=== PATIENT | female | born 1955 | race Caucasian/White ===

== ENCOUNTER 2017-12-05 12:44 | Outpatient (CLI) | payer MEDICARE, SELFPAY ==
[2017-12-05 16:03] LABS: Abs Immature Grans 0.01 k/cumm (0.0-0.09); Absolute Basophil Count 0.03 k/cumm (0.0-0.2); Absolute Eosinophil Count 0.12 k/cumm (0.0-0.7); Absolute Lymphocyte Count 1.91 k/cumm (1.2-3.4); Absolute Monocyte Count 0.66 k/cumm (0.11-0.7); Absolute Neutrophil Count 6.39 k/cumm (1.2-6.7); Basophils % 0.3; Eosinophils % 1.3; HGB 12.1 g/dL (12.0-15.5); Immature Grans % 0.1; Lymphocytes % 20.9; Mean Corp. HGB Concentration 32.7 g/dL (32.0-36.0); Mean Corpuscular Hemoglobin 31.5 pg (27.0-33.0); Mean Corpuscular Volume 96.4 fL (80-95); Mean Platelet Volume 9.3 fL (8.0-11.0); Monocytes % 7.2; Neutrophils % 70.2; Platelet Count 282 x1000/uL (130-400); RBC 3.84 m/cumm (4.00-5.20); White Blood Cell Count 9.12 k/cumm (4.4-10.8)
== END 2017-12-05 13:04 ==
PROVIDERS: PCP Nurse Practitioner Family; Visit Provider Nurse Practitioner Family
DX: F32.1 Major depressive disorder, single episode, moderate (principal); R53.83 Other fatigue; D64.9 Anemia, unspecified
CPT/HCPCS: 36415; 85025

== ENCOUNTER 2018-01-31 01:07 | Outpatient (CLI) | payer MEDICARE, SELFPAY ==
[2018-01-31 12:41] LABS: Cholesterol 190 mg/dL (50-200); HDL Cholesterol 98 mg/dL (40-60); LDL CHOLESTEROL 80 mg/dL (<100); TSH 3.01 uIU/mL (0.358-3.74); Triglyceride 79 mg/dL (30-150)
== END 2018-01-31 01:27 ==
PROVIDERS: PCP Nurse Practitioner Family; Visit Provider Nurse Practitioner Family
DX: E04.1 Nontoxic single thyroid nodule (principal); E03.9 Hypothyroidism, unspecified
CPT/HCPCS: 36415; 80061; 83721; 84443

== ENCOUNTER 2018-03-13 12:22 | Outpatient (REF) | payer MEDICARE, SELFPAY ==
[2018-03-13 13:04] LABS: Abs Immature Grans 0.02 k/cumm (0.0-0.09); Absolute Basophil Count 0.02 k/cumm (0.0-0.2); Absolute Eosinophil Count 0.05 k/cumm (0.0-0.7); Absolute Lymphocyte Count 1.95 k/cumm (1.2-3.4); Absolute Monocyte Count 0.62 k/cumm (0.11-0.7); Absolute Neutrophil Count 4.09 k/cumm (1.2-6.7); Basophils % 0.3; Eosinophils % 0.7; HCT 40.8 % (36.0-46.0); HGB 13.7 g/dL (12.0-15.5); Immature Grans % 0.3; Lymphocytes % 28.9; Mean Corp. HGB Concentration 33.6 g/dL (32.0-36.0); Mean Corpuscular Hemoglobin 32.2 pg (27.0-33.0); Mean Platelet Volume 9.5 fL (8.0-11.0); Monocytes % 9.2; Neutrophils % 60.6; Platelet Count 316 x1000/uL (130-400); RBC 4.25 m/cumm (4.00-5.20); RBC Distribution Width 13.1 % (11.7-14.6); White Blood Cell Count 6.75 k/cumm (4.4-10.8)
== END 2018-03-13 12:42 ==
LOC: LBN 12:22
PROVIDERS: PCP Nurse Practitioner Family; Visit Provider Nurse Practitioner Family
DX: D53.9 Nutritional anemia, unspecified (principal)
CPT/HCPCS: 85025

== ENCOUNTER 2018-09-04 13:03 | Outpatient (REF) | payer MEDICARE, SELFPAY ==
[2018-09-04 20:13] LABS: HCT 41.1 % (36.0-46.0); HGB 13.5 g/dL (12.0-15.5); Mean Corp. HGB Concentration 32.8 g/dL (32.0-36.0); Mean Corpuscular Hemoglobin 31.8 pg (27.0-33.0); Mean Corpuscular Volume 96.9 fL (80-95); Mean Platelet Volume 10.1 fL (8.0-11.0); Platelet Count 305 x1000/uL (130-400); RBC 4.24 m/cumm (4.00-5.20); RBC Distribution Width 13.3 % (11.7-14.6); White Blood Cell Count 5.71 k/cumm (4.4-10.8)
[2018-09-04 20:21] LABS: ALT 26 U/L (12-78); AST 18 U/L (15-37); Alkaline Phosphatase 67 U/L (46-116); Anion Gap 7.6 mmol/L (3-11); BUN 12 mg/dL (7-18); Bilirubin, Total 0.3 mg/dL (0.2-1.0); CO2 29.4 mmol/L (21.0-32.0); CREATININE 0.99 mg/dL (0.55-1.02); Calcium 9.3 mg/dL (8.5-10.1); Chloride 104 mmol/L (98-107); Estimated GFR 56.65 (mL/min/1.73m2); Glucose 115 mg/dL (70-100); Potassium 3.8 mmol/L (3.5-5.1); Sodium 141 mmol/L (136-145); TSH (W/Ref FT4) 0.98 uIU/mL (0.358-3.74); Total Protein 6.8 g/dL (6.4-8.2)
== END 2018-09-04 13:23 ==
LOC: NCHCN 13:03
PROVIDERS: PCP Nurse Practitioner Family; Visit Provider Nurse Practitioner Family
DX: E04.1 Nontoxic single thyroid nodule (principal); D53.9 Nutritional anemia, unspecified; F32.9 Major depressive disorder, single episode, unspecified; E03.9 Hypothyroidism, unspecified
CPT/HCPCS: 80053; 85027; 84443

== ENCOUNTER 2018-10-13 13:22 | Outpatient (REF) | payer MEDICARE, OTHER, SELFPAY ==
--- NOTE | 2018-10-13 11:50 | PAPFT_PTH ---
PATIENT: Reina Low LOC: [facility] U#:[id number] AGE/SX: 63/F ROOM: RE10/13/[address]: Shankar Torres : 1955 BED: DIS: 10/13/2018 SPEC #: [id number] RECD: 10/13/18 18:00 STATUS: KRISTAL REQ #: [id number] MATT: 10/13/18 11:[address]: Shankar Torres DEPT: [facility] Cytology RECD BY: Mei Dyson Tissues: 1 - CX/ENDOCX FOR PAP SMEARS Procedures: PAP THIN PREP/UVM Screening HPV DNA PROBE Comments: [id number]
== END 2018-10-13 13:42 ==
LOC: NCHCN 13:22
PROVIDERS: PCP Nurse Practitioner Family; Visit Provider Nurse Practitioner Family
DX: Z12.4 Encounter for screening for malignant neoplasm of cervix (principal); Z11.51 Encounter for screening for human papillomavirus (HPV)
CPT/HCPCS: 88142; 87624

== ENCOUNTER → 2018-11-17 10:57 | Outpatient (BNVA) | payer MEDICARE, OTHER, SELFPAY | PROVIDERS: PCP Nurse Practitioner Family; Referring Provider Nurse Practitioner Family; Visit Provider Physical Therapy Assistant | DX: K21.9 Gastro-esophageal reflux disease without esophagitis (principal); Z12.11 Encounter for screening for malignant neoplasm of colon | CPT/HCPCS: 99213 ==

== ENCOUNTER 2018-11-17 11:45 | Outpatient (CLI) | payer MEDICARE, OTHER, SELFPAY ==
[2018-11-21 10:24] LABS: SS-A Antibody 1.1 Units (<20); SS-B (La) Ab, IgG 3.1 Units (<20)
== END 2018-11-17 12:05 ==
PROVIDERS: PCP Nurse Practitioner Family; Visit Provider Otolaryngology Otolaryngology/Facial Plastic Surgery
DX: R49.0 Dysphonia (principal); H04.123 Dry eye syndrome of bilateral lacrimal glands; R68.2 Dry mouth, unspecified; K21.9 Gastro-esophageal reflux disease without esophagitis; Z12.11 Encounter for screening for malignant neoplasm of colon
CPT/HCPCS: 36415; 99213; 86235

== ENCOUNTER 2019-03-05 01:25 | Outpatient (CLI) | payer MEDICARE, OTHER, SELFPAY ==
--- NOTE | 2019-03-05 12:45 | DI.MAMMO_ITS ---
EXAM: MG MAMMO SCREENING CLINICAL HISTORY: SCREENING Z12.39. TECHNIQUE: Full field digital CC and MLO mammographic images were obtained with 3D tomosynthesis and utilizing computer aided detection (CAD). COMPARISON: 2009 through 2013 FINDINGS: Breast density: C Masses/Architectural Distortion: None seen. Microcalcifications: No suspicious pleomorphic-type calcifications are seen. Skin Thickening/Nipple Retraction: None. Axilla: Unremarkable. IMPRESSION: 1. BI-RADS category 1, negative. No significant interval change with no specific features of maligna ncy noted. 2. Unless there is more urgent need, screening mammography is recommended, as per [employer] guidelines. BI-RADS Cat 1 - Negative Breast Density - Category C - Heterogeneously dense A negative radiographic report should not delay biopsy if a dominant or clinically suspicious mass is present. Up to ten percent of cancers are not identified on mammography. A negative report may reinforce clinical impression. Adenosis and dense breasts may obscure an underlying neoplasm. False positive reports average 6 to 10%. Patient will receive a letter notifying them of these results.
== END 2019-03-05 01:45 ==
PROVIDERS: PCP Nurse Practitioner Family; Visit Provider Nurse Practitioner Family
DX: Z12.31 Encounter for screening mammogram for malignant neoplasm of breast (principal)
CPT/HCPCS: 77063; 77067

== ENCOUNTER 2019-11-08 11:37 | Outpatient (REF) | payer MEDICARE, OTHER, SELFPAY ==
[2019-11-08 18:20] LABS: HCT 39.5 % (36.0-46.0); HGB 12.7 g/dL (11.2-15.7); MCH 31.2 pg (27.0-33.0); MCHC 32.2 % (32.0-36.0); MCV 97.1 fL (80-95); MPV 9.3 fL (8.0-11.0); Platelet Count 276 10^3/uL (130-400); RBC 4.07 10^6/uL (3.93-5.22); RDW 12.6 % (11.7-14.6); RDW-SD 45.3 fL; WBC 7.28 10^3/uL (4.4-10.8)
[2019-11-08 18:43] LABS: Anion Gap 7.7 mmol/L (3-11); BUN 17 mg/dL (7-18); CO2 30.3 mmol/L (21.0-32.0); CREATININE 0.96 mg/dL (0.55-1.02); Calcium 8.9 mg/dL (8.5-10.1); Calculated LDL 112 mg/dL (<100); Chloride 102 mmol/L (98-107); Cholesterol 217 mg/dL (<200); Estimated GFR 58.51 (mL/min/1.73m2); Glucose 93 mg/dL (74-106); HDL Cholesterol 84 mg/dL (40-60); Potassium 3.5 mmol/L (3.5-5.1); Sodium 140 mmol/L (136-145); TSH (W/Ref FT4) 0.69 uIU/mL (0.36-3.74); Triglyceride 109 mg/dL (<150)
== END 2019-11-08 11:57 ==
LOC: NCHCN 11:37
PROVIDERS: PCP Nurse Practitioner Family; Visit Provider Nurse Practitioner Family
DX: E04.1 Nontoxic single thyroid nodule (principal); E87.6 Hypokalemia; E03.9 Hypothyroidism, unspecified
CPT/HCPCS: 80048; 80061; 85027; 84443

== ENCOUNTER 2019-12-20 20:08 | Outpatient (CLI) | payer MEDICARE, OTHER, SELFPAY ==
--- NOTE | 2019-12-20 15:04 | DI.DEXA_ITS ---
EXAM: XR DEXA BONE DENSITY W/WO ANDREEA CLINICAL HISTORY: DISORDER OF BONE DENSITY,M85.88 TECHNIQUE: HoloTipRanks Horizon C densitometer COMPARISON: DX DEXA BONE DENSITY WITH ANDREEA from 01/01/2014 CR CHEST 2 VIEWS PA,LAT from 03/24/2016 FINDINGS: Lateral view of the thoracic and lumbar spine shows thoracic kyphosis. The thoracic vertebral bodies are not ideally visualized. There are degenerative disc changes and scoliosis in the lower lumbar s pine. Degenerative changes appear to have increased when compared with the previous exam which could account for increase in bone density at the L3 and L4 levels. Total T-score of the lumbar spine is -0.2, in the normal range. This represents a 9.8 percent increase when compared with 2013. The bone mineral density measurements of the left hip correspond to a total T-score of -1.4 and a fem oral neck T-score of -2.0, in the osteopenic range. This is unchanged from 2014. The bone mineral density measurements of the left forearm correspond to a T-score of the distal 3rd o f -1.7, in the osteopenic range. Forearm bone density is decreased 3.1 percent which is not statisti shadi significant. IMPRESSION: Normal bone mineral density of lumbar spine with increase when compared with 2014. Stable osteopenia of the left hip and left forearm.
== END 2019-12-20 20:28 ==
PROVIDERS: PCP Nurse Practitioner Family; Visit Provider Nurse Practitioner Family
DX: M85.88 Other specified disorders of bone density and structure, other site (principal)
CPT/HCPCS: 77080

== ENCOUNTER 2020-02-14 15:53 | Outpatient (REF) | payer MEDICARE, OTHER, SELFPAY ==
[2020-02-16 09:48] LABS: COVID-19 RT-PCR Result NEGATIVE (Negative)
== END 2020-02-14 16:13 ==
LOC: NCHCN 15:53
PROVIDERS: PCP Nurse Practitioner Family; Visit Provider Nurse Practitioner Family
DX: Z11.59 Encounter for screening for other viral diseases (principal)
CPT/HCPCS: U0003

== ENCOUNTER 2020-09-17 12:56 | Outpatient (CLI) | payer MEDICARE, OTHER, SELFPAY ==
[2020-09-17 13:46] LABS: Abs Immature Grans 0.02 10^3/uL (0.0-0.06); Absolute Basophil Count 0.04 10^3/uL (0.0-0.2); Absolute Eosinophil Count 0.06 10^3/uL (0.0-0.7); Absolute Neutrophil Count 4.14 10^3/uL (1.2-6.7); Basophils % 0.6; Eosinophils % 0.9; HCT 39.7 % (36.0-46.0); Immature Grans % 0.3; Lymphocytes % 28.5; MCH 31.2 pg (27.0-33.0); MCHC 32.7 % (32.0-36.0); MCV 95.2 fL (80-95); MPV 8.8 fL (8.0-11.0); Monocytes % 7.5; Neutrophils % 62.2; Nucleated RBC 0 %; Platelet Count 289 10^3/uL (130-400); RBC 4.17 10^6/uL (3.93-5.22); RDW 13.1 % (11.7-14.6); RDW-SD 45.7 fL; WBC 6.66 10^3/uL (4.4-10.8)
[2020-09-17 15:10] LABS: ALT 30 U/L (14-59); AST 28 U/L (15-37); Albumin 3.9 g/dL (3.4-5.0); Alkaline Phosphatase 76 U/L (46-116); Anion Gap 7.4 mmol/L (3-11); BUN 14 mg/dL (7-18); Bilirubin, Total 0.3 mg/dL (0.2-1.0); CO2 30.6 mmol/L (21.0-32.0); Calcium 8.9 mg/dL (8.5-10.1); Calculated LDL 119 mg/dL (<100); Chloride 106 mmol/L (98-107); Cholesterol 220 mg/dL (<200); Estimated GFR 55.64 (mL/min/1.73m2); Ferritin 51 ng/mL (8-252); Glucose 92 mg/dL (74-106); HDL Cholesterol 71 mg/dL (40-60); Magnesium 1.9 mg/dL (1.8-2.4); Potassium 3.9 mmol/L (3.5-5.1); Sodium 144 mmol/L (136-145); TSH 0.46 uIU/mL (0.36-3.74); Total Protein 6.5 g/dL (6.4-8.2); Triglyceride 151 mg/dL (<150); Vitamin B12 509 pg/mL (193-986)
[2020-09-17 15:12] LABS: Folate > 20.0 ng/mL (8.6-20.0)
[2020-09-17 18:14] LABS: C-Reactive Protein 0.08 mg/dL (0.0-0.3)
[2020-09-17 19:13] LABS: Hemoglobin A1C 5.6 % (<5.7)
[2020-09-18 16:36] LABS: T3,Free 2.9 pg/mL (2.8-5.3)
[2020-09-22 09:43] LABS: 25-Hydroxy D Total 73 ng/mL; 25-Hydroxy D2 <4.0 ng/mL; 25-Hydroxy D3 73 ng/mL
== END 2020-09-17 12:57 | disposition home or self-care (01) ==
LOC: LBO 12:58
PROVIDERS: PCP Nurse Practitioner Family; Visit Provider Psychiatry & Neurology Psychiatry
DX: F32.1 Major depressive disorder, single episode, moderate (principal); Z79.899 Other long term (current) drug therapy
CPT/HCPCS: 36415; 80053; 80061; 82306; 82607; 82728; 82746; 83036; 83735; 84439; 84443; 84481; 85025; 86140

== ENCOUNTER 2020-12-11 02:02 | Outpatient (CLI) | payer MEDICARE, OTHER, SELFPAY ==
--- NOTE | 2020-12-11 | DI.MAMMO_ITS ---
Exam(s) MAMMO SCREENING EXAM: MAMMO SCREENING CLINICAL HISTORY: SCREENING, Z12.39 TECHNIQUE: Mammograms were interpreted according to the usual protocol including computer analysis w [facility] CAD system, tomosynthesis and C-view imaging. COMPARISON: FINDINGS: The breasts are heterogeneously dense. No dominant mass or clumped microcalcification is identified in either breast. The current examination is compared with previous examinations including March 01 and there has been no gross interval change in appearance in comparison with the prior studies. IMPRESSION: No specific evidence of malignancy at this time. Routine screening examinations are suggested at yea rly intervals in this age group according to the ACS ACR guidelines. BI-RADS Category 1 - Negative Breast Density - Category C - Heterogeneously dense
== END 2020-12-11 02:22 ==
PROVIDERS: PCP Nurse Practitioner; Visit Provider Nurse Practitioner
DX: Z12.31 Encounter for screening mammogram for malignant neoplasm of breast (principal); R92.8 Other abnormal and inconclusive findings on diagnostic imaging of breast
CPT/HCPCS: 77063; 77067

== ENCOUNTER → 2021-08-14 08:56 | Outpatient (BNVA) | payer MEDICARE, OTHER, SELFPAY | PROVIDERS: PCP Nurse Practitioner; Referring Provider Nurse Practitioner; Visit Provider Physical Therapy Assistant | DX: Z12.11 Encounter for screening for malignant neoplasm of colon (principal) ==

== ENCOUNTER 2021-08-24 08:24 | Day surgery (SDC) | payer MEDICARE, OTHER, SELFPAY ==
[2021-08-24] VITALS (7 sets, daily range): BP systolic 97–123; BP diastolic 63–92; PULSE 71–89; RESP 11–17; TEMP 36–36.4; O2SAT 96–100; BMI 22.6
--- NOTE | 2021-08-24 06:55 | COLE_ITS ---
Colonoscopy Report Date of procedure: 08/24/21 Pre-op diagnosis general: Colon cancer Screening Post-op diagnosis procedure note: other (numeros polyps) Procedure: Colonoscopy with polypectomy Surgeon: Genevieve Daniels Anesthesia Type: General:No Airway Estimated blood loss (mL): 5 Pathology: other (cecum polyps, ascending polyps, transverse polyp (mass), Tr ansverse polyps, descending polyps x3) Complications: None Disposition: same day Indications: The patient is here for Colonoscopy pre-op. She has no family history of colon cancer. She has not had any bowel habit changes. -Discussed colonoscopy bowel prep as well as the procedure. Discussed possible complications of the procedure to include bleeding, pain, perforation, missed small lesion/polyp, sore throat, aspiration and adverse reaction to the medications. Questions were answered to patient?s satisfaction. No guarantees were implied or given Prep: Miralax/Dulcolax Procedure Start Time: 11:03 Procedure End Time: 11:50 Retraction Time: 30 minutes Findings: Islands of small polyps noted in the cecum and ascening and transverse colon. Most of them were removed with hot snare Large polyp/mass in the transverse colon, measuring >1.5 cm descending polyps x3 Procedure Description: After informed consent was obtained the patient was taken to the procedure room and placed in a left decubitous position. Monitors were applied and a time out was done. The patients name, date of , procedure, allergies to medications and metal in their body was reviewed. The patient was then sedated. Once sedated and comfortable a rectal exam was done. External exam was normal. Internal exam revealed a normal sphincter tone and no palpable masses. The scope was then introduced and retro-flexed. No internal hemorrhoids, polyps or masses were identified on retro-flexion. The scope was then advanced to the cecum without difficulty. The ileocecal vlave and appendiceal orifice were identified. The prep was good. The scope was then slowly retracted over 30 minutes back into the rectum. There were 2 islands of small polyps in the cecum that were removed with a hot snare. There were still some polyps left behind. I didn't want to perforate the area. Another island of polyps was identified in the ascending colon and transverse colon. Again most of the polyps within this area were removed with hot snare. A large polyp, measuring >15 mm was removed with a hot snare in the Transverse colon and the area was Tattoed. 3 polyps were removed with a hot snare and cold forceps in the descending colon. There was no diverticulosis noted. The scope was removed and the patient was woken up and taken back to Same day surgery in stable condition. The patient tolerated the procedure well and there were no immediate complications.
--- NOTE | 2021-08-24 06:56 | W.PM.DSUDISC ---
Discharge Plan Disposition Patient Disposition: HOME Condition: Good Discharge Details Reason For Visit: Colon cancer screening Attending Provider: Genevieve Daniels Primary Care Provider: Valencia Torres Home Meds and New Rx's Prescriptions: Continued quetiapine [Seroquel] 50 mg tablet 50 mg PO HS Vraylar 4.5 mg capsule 4.5 mg PO DAILY sennosides [senna] 8.6 mg tablet 8.6 mg PO DAILY riboflavin (vitamin B2) 100 mg tablet 200 mg PO BID coenzyme Q10 [Co Q-10] 100 mg capsule 100 mg PO TID aspirin [Adult Low Dose Aspirin] 81 mg tablet,delayed release (DR/EC) 81 mg PO DAILY alendronate [Fosamax] 70 mg tablet 70 mg PO QWEEK venlafaxine 100 mg tablet 225 mg PO DAILY prazosin [Minipress] 1 mg capsule 1 mg PO QHS lactulose 10 gram/15 mL (15 mL) solution 10 gm PO DAILY PRN Label Comments: pt reports hasnt taken in years clonazepam 1 mg tablet 1 mg PO QHS cholecalciferol (vitamin D3) [Vitamin D3] 1,000 unit Capsule 1,000 unit PO BID carboxymethylcellulose sodium [Refresh Celluvisc] 1 % Dropperette,Gel 1 drp ophthalmic (eye) BID magnesium oxide 400 mg magnesium Tablet 400 mg PO HS sumatriptan succinate 100 MG tablet 100 mg PO PRN Rx Instructions: 100mg may repeat dose 2hrs per pt levothyroxine 100 MCG tablet 100 mcg PO DAILY simvastatin 20 MG tablet 20 mg PO QPM cyclosporine [Restasis] 1 EACH dropperette 1 ea Ophthalmic BID omega-3 fatty acids-fish oil 1 EACH capsule 3 ea PO DAILY omeprazole 20 mg capsule,delayed release(DR/EC) 20 mg PO BID Discontinued bisacodyl [Dulcolax (bisacodyl)] 5 mg tablet,delayed release (DR/EC) 5 mg PO ONCE Qty: 4 0RF Rx Instructions: Colonoscopy Bowel Prep- Per Instructions polyethylene glycol 3350 17 gram/dose powder 238 g PO ONCE Qty: 238 0RF Rx Instructions: Colonoscopy Bowel Prep- Per Instructions polyethylene glycol 3350 17 gram/dose powder 17 g PO ONCE Qty: 238 0RF Rx Instructions: To be taken as directed by prescriber's office for colonoscopy prep. Discharge Instructions Instructions: Colorectal Polyps (DC) Additional Instructions: Findings: More then 30 polyps in clusters. One large polyp >2 cm in size Follow up: I will call with results Please call if you develop: fevers >101.5 Nausea or Vomiting Abdominal pain that is not transient Rectal bleeding that is more then a tbsp A hard abdomen and inability to pass gas DAY SURGERY UNIT POST ENDOSCOPY INSTRUCTIONS Instructions for everyone who is given Anesthesia: For your safety, please do the following for the next 24 Hours: a. Do not drive or operate dangerous equipment b. Do not drink alcohol beverages or use any recreational drugs for the first 24 hours or while taking pain medications. The medications in your body may have a reaction that can be dangerous. c. Do not make any important decisions or sign any important papers 1. Generally there are no restrictions on your activity after a day or so has gone by, but you may feel a bit fatigued for a few days. 2. After you arrive home you may have a light meal and return to a normal diet as you can tolerate it without feeling sick to your stomach. 3. After surgery, you may feel pain or discomfort. This should be only transient, but if it persists please contact your doctor. 4. If there are any questions regarding the findings of your procedure, please feel free to contact your doctor. 6. If you are unable to contact your doctor with a problem, contact the hospital at [phone]. 7. Continue all your regular medications unless directed otherwise. I understand the above instructions and have no questions. Signature of Patient or Responsible Adult Escort Date/Time Name of Responsible Adult Escort Signature of Nurse Date/Time Activity:: Activity as Tolerated Diet:: As Tolerated Discharge Orders Discharge Orders: Discharge Order (Routine); Ordered 08/24/21 Ordered By: Genevieve Daniels
[2021-08-24 09:16] LABS: Source Nasal/Nares
[2021-08-24] MEDS: Lactated Ringers 1,000 ML 80 ML IV (09:34)
--- NOTE | 2021-08-24 10:00 | W.ANESPRE ---
General Info Date of Service Date Performed: 08/24/21 Height: 5 ft 3 in Weight: 58.1 kg Body Mass Index (BMI): 22.6 Surgical Procedure: Operation Date: 08/24/21 10:35 Proposed Procedure Side Surgeon wilton Daniels MD Meds Allergies and Home Medications Allergies Allergy/AdvReac Type Severity Reaction Status Date / Time morphine AdvReac Intermediate Nausea Verified 08/24/21 09:06 acetaminophen AdvReac Unknown Hallucinati Verified 08/24/21 09:14 [From Excedrin PM] ons diphenhydramine citrate AdvReac Unknown Hallucinati Verified 08/24/21 09:14 [From Excedrin PM] ons propoxyphene HCl AdvReac Unknown tremors Verified 08/24/21 09:14 [From Darvon] and double vision ramelteon [From Rozerem] AdvReac Unknown tachycardia Verified 08/24/21 09:06 and chest pain bupropion HCl AdvReac Visual Verified 08/24/21 09:14 [From Wellbutrin] Disturbances, blurred vision divalproex sodium AdvReac T[place]ons Verified 08/24/21 09:06 [From Depakote] and confusion gabapentin [From Neurontin] AdvReac Visual Verified 08/24/21 09:14 disturbances and tremors, blurred vision and confusio lithium [[place]] AdvReac affects Verified 08/24/21 09:06 thought process protriptyline HCl AdvReac Visual Verified 08/24/21 09:06 [From Vivactil] Disturbances trazodone AdvReac Visual Verified 08/24/21 09:14 Disturbances, depth perception disturbances Vicks fong cough syrup Allergy Unknown Visual Uncoded 08/24/21 09:07 Disturbances antistamines AdvReac Hallucinati Uncoded 08/24/21 09:07 ons Home Medication Medication Instructions Recorded cyclosporine 0.05 % eye drops in a 1 ea ophthalmic (eye) BID 11/16/13 dropperette (Restasis) levothyroxine 100 mcg tablet 100 mcg PO DAILY 11/16/13 omega-3 fatty acids-fish oil 300 3 ea PO DAILY 11/16/13 mg-1,000 mg capsule simvastatin 20 mg tablet 20 mg PO QPM 11/16/13 sumatriptan succinate 100 mg tablet 100 mg PO PRN 11/16/13 alendronate 70 mg tablet (Fosamax) 70 mg PO QWEEK 09/26/18 aspirin 81 mg tablet,delayed 81 mg PO DAILY 09/26/18 release (Adult Low Dose Aspirin) cariprazine 4.5 mg capsule 4.5 mg PO DAILY 09/26/18 (Vraylar) coenzyme Q10 100 mg capsule (Co 100 mg PO TID 09/26/18 Q-10) prazosin 1 mg capsule (Minipress) 1 mg PO QHS 09/26/18 quetiapine 50 mg tablet (Seroquel) 50 mg PO HS 09/26/18 riboflavin (vitamin B2) 100 mg 200 mg PO BID 09/26/18 tablet sennosides 8.6 mg tablet (senna) 8.6 mg PO DAILY 09/26/18 venlafaxine 100 mg tablet 225 mg PO DAILY 09/26/18 lactulose 10 gram/15 mL (15 mL) 10 gm PO DAILY PRN 11/17/18 oral solution omeprazole 20 mg capsule,delayed 20 mg PO BID 11/17/18 release carboxymethylcellulose sodium 1 % 1 drp ophthalmic (eye) BID 01/04/19 eye gel in a dropperette (Refresh Celluvisc) cholecalciferol (vitamin D3) 25 1,000 unit PO BID 01/04/19 mcg (1,000 unit) capsule (Vitamin D3) magnesium oxide 400 mg PO HS 01/04/19 bisacodyl 5 mg tablet,delayed 5 mg PO ONCE Colonoscopy Bowel 08/14/21 release (Dulcolax (bisacodyl)) Prep #4 tabs clonazepam 1 mg tablet 1 mg PO QHS 08/14/21 polyethylene glycol 3350 17 17 g PO ONCE #238 grams 08/14/21 gram/dose oral powder polyethylene glycol 3350 17 238 g PO ONCE Colonoscopy Bowel 08/14/21 gram/dose oral powder Prep #238 grams Current Visit Medications: Current Medications Generic Name Dose Route Start Last Admin Trade Name Freq PRN Reason Stop Dose Admin Hyoscyamine Sulfate 0.125 mg 08/24/21 06:56 Hyoscyamine 0.125 Mg Sl/Oral/Chew SL DIRECTED PRN Ringer's Solution 1,000 mls @ 80 mls/hr 08/24/21 06:00 08/24/21 09:34 IV 09/20/21 23:59 80 mls/hr INFUSION EILSA Administration IV Miscellaneous Supplies 1 each 08/24/21 06:00 Iv Access IV 09/20/21 23:59 DIRECTED ELISA Ondansetron HCl 4 mg 08/24/21 06:56 Ondansetron 4 Mg/2 Ml Vial IVP Q4H PRN PRN Nausea / Vomiting Sodium Chloride 0 ml 08/24/21 06:00 Normal Saline Flush 10 Ml Syr IV 09/20/21 23:59 PRN PRN Sodium Chloride 0 ml 08/24/21 06:00 Normal Saline 10 Ml Vial IJ 09/20/21 23:59 DIRECTED PRN Sterile Water 0 ml 08/24/21 06:00 Water,Injection,Sterile 10 Ml Vial IJ 09/20/21 23:59 DIRECTED PRN PFSH Active Problems Active Problems: Problem Status Onset Code Heart murmur Laryngopharyngeal reflux (LPR) K21.9 Screening for colon cancer Z12.11 Chronic kidney disease N18.9 Medical History Medical History ADD (attention deficit disorder) pt denies Anemia Back pain with radiation Blurred vision Classical migraine with intractable migraine Depressed mood Deviated nasal septum Dry eyes Dry mouth Dysphonia Fibromyalgia Genital herpes Hallux valgus Herniated cervical disc Hoarseness Hyperlipidemia Hypersomnia Hypokalemia Hypothyroid Major depressive disorder with current active episode Migraine Nasal obstruction Nasal turbinate hypertrophy Osteoarthritis Osteopenia Plantar fasciitis PTSD (post-traumatic stress disorder) Pt. states there is nothing that is a potential trigger we should be aware of. Scoliosis Spondylosis of cervical region without myelopathy or radiculopathy Thyroid nodule Medical History Comments:: Pt. 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 Also has a history of low BP. Pt. states I regurgitate easily Surgical History Surgical History Hx of cataract removal with insertion of prosthetic lens Hx of cholecystectomy Hx of fusion of cervical spine C5,6,7 with plates and screws per pt Tobacco Smoking/Tobacco Use Status: Never Alcohol Alcohol Intake: never Substance Use Substance use: Never Substance use type: does not use Vital Signs and Lab Results Vital Signs Most Recent Vital Signs in EMR: Most Recent Vital Signs Temp Pulse Resp BP Pulse Ox 36.4 C L 89 16 97/63 L 96 08/24/21 08:54 08/24/21 08:54 08/24/21 08:54 08/24/21 08:54 08/24/21 08:54 Lab Results Blood Type / Crossmatch: No Data to Display Complete Blood Count: No Data to Display Complete Metabolic Panel: No Data to Display Liver Function Panel: No Data to Display Coagulation Panel: No Data to Display Cardiac Panel: No Data to Display Arterial Blood Gas: No Data to Display Venous Blood Gas: No Data to Display Pancreas Panel: No Data to Display Thyroid Panel: No Data to Display Infectious Disease: Coronavirus (COVID-19)(PCR) Negative (Negative) 08/24/21 08:45 Coronavirus 2019 Source Nasal/Nares 08/24/21 08:45 Blood Cultures: No Data to Display Toxicology Panel: No Data to Display Anesthesia Assessment and Plan Anesthesia History Personal History: Other Family History: No Family History of Anesthesia Complications Exercise Tolerance Exercise Tolerance: Metabolic Equivalents<4 Pertinent Negatives Pertinent Negatives: No Major Pulmonary Symptoms or Complaints and No History of CVA/TIA Cardiac & Pulmonary Exam Cardiac Exam: Normal S1/S2 Heart Sounds Pulmonary Exam: Clear Bilateral Breath Sounds Implantable Cardiac Device Does patient have a Pacemaker or an ICD?: No Airway Exam Known Difficult Airway: Yes Mallampati Class: 3 Mouth Opening: Normal (> 3cm) Thyromental Distance: Greater than 3 cm Neck Range of Motion: Full ROM (ACDF in the past, demonstrated FCROM. ) Neck Circumference: Normal Teeth Condition: Normal Dentition ASA Classification ASA Score: ASA 3 Emergency Case?: No NPO Status NPO Status: NPO Clears >2 hours, Solids >8 hours Anesthesia Plan Resuscitation Status: Full Code Anesthesia Technique: General Anesthesia Airway Planned: Endotracheal Tube (Significant GERD symptoms daily. Patient has a croaky throat per ) Monitors Used: Standard Monitors Preoperative Comments:: numbness BLE, R>L
[2021-08-24 10:17] LABS: COVID-19 PCR Negative (Negative)
--- NOTE | 2021-08-24 11:15 | BOWEL_PTH ---
PATIENT: Reina Low LOC: [facility] U#:[id number] AGE/SX: 66/F ROOM: RE08/24/[address]: Genevieve Daniels MD : 1955 BED: DIS: 08/24/2021 SPEC #: [id number] RECD: 08/24/21 13:33 STATUS: KRISTAL RELara #: [id number] MATT: 08/24/21 11:[address]: Genevieve Daniels DEPT: Surgical Specimen RECD BY: Mei Dyson ENTERED: 08/24/21 13:35 SP TYPE: Bowel OTHR DR: Valencia Peña CRNA Tissues: 1 - BIOPSY BOWEL 2 - BIOPSY BOWEL 3 - BIOPSY BOWEL 4 - BIOPSY BOWEL 5 - BIOPSY BOWEL Procedures: GROSS AND MICRO LEVEL 4 Comments: [id number]
[2021-08-24] MEDS: Endoscopic Tattoo 5 ML SYR IJ (11:32)
--- NOTE | 2021-08-24 13:27 | W.ANESPOSTOP ---
Postoperative Evaluation Date, Time and Location Date Performed: 08/24/21 Time Performed: : Patient Location: Day Surgery Unit Vital Signs Most Recent Imported Vital Signs: Most Recent Vital Signs Temp Pulse Resp BP Pulse Ox 36.4 C L 71 16 107/65 96 08/24/21 13:05 08/24/21 13:05 08/24/21 13:05 08/24/21 13:05 08/24/21 13:05 Pain Score Most Recent Pain Score: Most Recent Pain Score Pain Level 0 08/24/21 13:05 Assessment Mental Status: Awake (Alert & Oriented to Patient Baseline) Airway and Respiratory Function: Patent airway with normal (patient baseline) respiratory exam Cardiovascular Function: Hemodynamically Stable Hydration Status: Adequately Hydrated Nausea & Vomiting: No Nausea or Vomiting Pain: Pt. Denies Any Pain Peripheral Nerve Block: Patient did not receive a nerve block
== END 2021-08-24 14:00 | disposition home or self-care (01) ==
PROVIDERS: PCP Student in an Organized Health Care Education/Training Program; Visit Provider Surgery
PROC: 0DJD8ZZ Inspection of Lower Intestinal Tract, Via Natural or Artificial Opening Endoscopic (ICD-10-PCS; CPT 45378; principal; 2021-08-24 10:30)
DX: Z12.11 Encounter for screening for malignant neoplasm of colon (principal); K63.5 Polyp of colon; D64.9 Anemia, unspecified; E03.9 Hypothyroidism, unspecified; E78.5 Hyperlipidemia, unspecified; N18.9 Chronic kidney disease, unspecified
CPT/HCPCS: 45385; 45381; 45380; 87635; 88305; J1100; J2405

== ENCOUNTER → 2022-01-26 10:23 | Outpatient (BNVA) | payer MEDICARE, OTHER, SELFPAY | PROVIDERS: PCP Student in an Organized Health Care Education/Training Program; Referring Provider Student in an Organized Health Care Education/Training Program; Visit Provider Surgery | DX: Z12.11 Encounter for screening for malignant neoplasm of colon (principal); Z86.010 Personal history of colon polyps ==

== ENCOUNTER 2022-02-03 09:13 | Day surgery (SDC) | payer MEDICARE, OTHER, SELFPAY ==
--- NOTE | 2022-02-02 21:59 | PDOC.DSDIS_ITS ---
Date of service: 02/03/22 Time of Service: 11:48 Discharge Plan Disposition Patient Disposition: HOME Condition: Good Discharge Details Reason For Visit: routine health maintence screening colonoscopy Attending Provider: Rodrigo Franco Primary Care Provider: JUSTIN RODRIGUEZ Home Meds and New Rx's Prescriptions: Continued quetiapine [Seroquel] 50 mg tablet 50 mg PO HS Vraylar 4.5 mg capsule 4.5 mg PO DAILY sennosides [senna] 8.6 mg tablet 8.6 mg PO DAILY riboflavin (vitamin B2) 100 mg tablet 200 mg PO BID coenzyme Q10 [Co Q-10] 100 mg capsule 100 mg PO TID aspirin [Adult Low Dose Aspirin] 81 mg tablet,delayed release (DR/EC) 81 mg PO DAILY alendronate [Fosamax] 70 mg tablet 70 mg PO QWEEK venlafaxine 100 mg tablet 225 mg PO DAILY prazosin [Minipress] 1 mg capsule 1 mg PO QHS lactulose 10 gram/15 mL (15 mL) solution 10 gm PO DAILY PRN Label Comments: pt reports hasnt taken in years clonazepam 1 mg tablet 0.5 mg PO QHS cholecalciferol (vitamin D3) [Vitamin D3] 1,000 unit Capsule 1,000 unit PO BID carboxymethylcellulose sodium [Refresh Celluvisc] 1 % Dropperette,Gel 1 drp ophthalmic (eye) QID magnesium oxide 400 mg magnesium Tablet 400 mg PO HS sumatriptan succinate 100 MG tablet 100 mg PO PRN Rx Instructions: 100mg may repeat dose 2hrs per pt levothyroxine 100 MCG tablet 100 mcg PO DAILY simvastatin 20 MG tablet 20 mg PO QPM cyclosporine [Restasis] 1 EACH dropperette 1 ea Ophthalmic QID omega-3 fatty acids-fish oil 1 EACH capsule 3 ea PO DAILY omeprazole 20 mg capsule,delayed release(DR/EC) 20 mg PO DAILY Discharge Instructions Instructions: Colorectal Polyps (DC) Additional Instructions: 1. If tolerated, consume a soft, low fiber diet for 1-2 days. 2[address] Do not drive, drink alcohol, operate machinery, make critical decisions, or do activities that require coordination or balance for 24 hours. 3. Because air was put into your colon during the procedure, expelling air from your rectum (passing gas or farting) is normal. 4. You may not have a bowel movement for 1-3 days because of the colonoscopy prep. This is normal. 5. Go directly to the emergency room if you notice any of the following: Develop chills (warm to touch), or if you have a thermometer and your temperature is above 101 Difficulty breathing or difficultly swallowing Persistent vomiting Severe abdominal pain, other than gas cramps Severe chest pain Black, tarry stools Any bleeding ? exceeding one tablespoon 6. Call your physician if the site where your intravenous was started becomes red, swollen, painful, and warm to touch. 7. Your physician has reviewed your pre-procedure medications. Please continue to take those medications as previously ordered. You will be given specific information/education regarding any changes to your medications before leaving. Referrals: Rodrigo Franco MD [ [facility] STAFF PHYSICIAN] - (Schedule an appointment to see me in 2 weeks to discuss the results of your pathology.) Activity:: Activity as Tolerated Diet:: As Tolerated DS: Diagnosis Discharge Diagnosis (1) Tubular adenoma of colon: Status: Acute Asessment and Plan: I performed biopsies of cecal polyps, and I removed polyps at 100 and 90 cm. I will contact you when I have the results of the pathology report.
--- NOTE | 2022-02-02 22:03 | COLE_ITS ---
Date of service: 02/03/22 Time of Service: 11:20 Colonoscopy Report Date of procedure: 02/03/22 Pre-op diagnosis general: screening colonoscopy Post-op diagnosis procedure note: other (Colorectal polyps) Procedure: Routine health maintenance screening colonoscopy Surgeon: Rodrigo Franco Anesthesia Type: General:No Airway Estimated blood loss (mL): 20 Pathology: other (Cecal polyps, polyp at 100 cm, polyp at 90 cm) Complications: None Disposition: same day Indications: Reina is a 66-year-old woman with a past medical history significant for colorectal polyps. She underwent colonoscopy and polypectomy. Most importantl y, she had a tubulovillous adenoma in the transverse colon, as well as evidence of polyposis within the cecum. She is following up for routine interval screening Prep: Miralax/Dulcolax Procedure Start Time: 10:52 Procedure End Time: 11:20 Retraction Time: 21 Findings: Cecal polyposis, polyps at 90 to 100 cm from the anal verge Procedure Description: After the induction of monitored anesthetic care, and with the patient in left lateral decubitus position, I began by performing an external anorectal exam.? Perineum and skin were normal, as was the anal verge.? There was no evidence of external hemorrhoids, however she did have a fair amount of perianal excoriation, that seems consistent with diarrhea from the bowel prep.? Next, I performed a digital rectal exam.? I did not appreciate any abnormal findings.? Next, I advanced a colonoscope into the rectal vault.? I performed retroflexion.? I this was normal.? Using insufflation, I then advanced the colonoscope beyond the rectal folds and into the sigmoid colon before advancing towards the cecum.? The quality of the prep was .? The scope was noted to be in the cecum by identification of the ileocecal valve and appendiceal orifice.? There was small polyposis along the ileocecal valve. The polyps were well less than 1 cm, but they were tightly clustered, and I suspect the total area involved was greater than 9 cm?. I do not believe that this could be safely excised endoscopically. I did take several cold forcep biopsies for evaluation of the tissue. There was a smaller area of polyposis several centimeters away. Similarly, I performed forcep biopsy of this area. Given the location of this disease within the cecum, the specimens were combined. I then began withdrawing the colonoscope using repeated irrigation as necessary for full evaluation of the colonic mucosa. In the previously tattooed area (where tubulovillous adenoma had been previously resected), there was another polyp. This was approximately 1.5 cm. I performed a polypectomy with electrical snare. There was no bleeding. I estimate this at 100 cm from the anal verge. Around 90 cm, there was a second polyp. This was less than 1 cm. This was also removed with snare polypectomy. Once the scope was withdrawn to the level of the rectum, great care was taken to examine portions of the rectal folds.? Finally, the scope was withdrawn and the patient was brought to the same-day surgery recovery unit as the anesthetic wore off. ?The findings and instructions were shared with the patient prior to discharge. We did talk for a little while after the proc edure regarding my recommendations, since the polypectomy in the cecum is incomplete. Ultimately, she might benefit from right hemicolectomy, but I will wait to see what the pathology results are before we make any final decisions.
[2022-02-03 09:29] VITALS: BP 111/69; PULSE 111; RESP 18; TEMP 36; O2SAT 95
[2022-02-03] MEDS: Lactated Ringers 1,000 ML 80 ML IV (09:49)
--- NOTE | 2022-02-03 10:26 | ANES.PREOP_ITS ---
General Info Date of Service Date Performed: 02/03/22 Height: 5 ft 3 in Weight: 55.8 kg Body Mass Index (BMI): 21.7 Surgical Procedure: Operation Date: 02/03/22 10:20 Proposed Procedure Side Surgeon wilton Franco MD Meds Allergies and Home Medications Allergies Allergy/AdvReac Type Severity Reaction Status Date / Time morphine AdvReac Intermediate Nausea Verified 02/02/22 10:14 acetaminophen AdvReac Unknown Hallucinati Verified 02/02/22 10:14 [From Excedrin PM] ons diphenhydramine citrate AdvReac Unknown Hallucinati Verified 02/02/22 10:14 [From Excedrin PM] ons propoxyphene HCl AdvReac Unknown tremors Verified 02/02/22 10:14 [From Darvon] and double vision ramelteon [From Rozerem] AdvReac Unknown tachycardia Verified 02/02/22 10:14 and chest pain bupropion HCl AdvReac Visual Verified 02/02/22 10:14 [From Wellbutrin] Disturbances, blurred vision divalproex sodium AdvReac Tremons Verified 02/02/22 10:14 [From Depakote] and confusion gabapentin [From Neurontin] AdvReac Visual Verified 02/02/22 10:14 disturbances and tremors, blurred vision and confusio lithium [[place]] AdvReac affects Verified 02/02/22 10:14 thought process protriptyline HCl AdvReac Visual Verified 02/02/22 10:14 [From Vivactil] Disturbances trazodone AdvReac Visual Verified 02/02/22 10:14 Disturbances, depth perception disturbances Vicks fong cough syrup Allergy Unknown Hallucinati Uncoded 02/02/22 10:14 on antistamines AdvReac Hallucinati Uncoded 02/02/22 10:14 ons Home Medication Medication Instructions Recorded cyclosporine 0.05 % eye drops in a 1 ea ophthalmic (eye) QID 11/16/13 dropperette (Restasis) levothyroxine 100 mcg tablet 100 mcg PO DAILY 11/16/13 omega-3 fatty acids-fish oil 300 3 ea PO DAILY 11/16/13 mg-1,000 mg capsule simvastatin 20 mg tablet 20 mg PO QPM 11/16/13 sumatriptan succinate 100 mg tablet 100 mg PO PRN 11/16/13 alendronate 70 mg tablet (Fosamax) 70 mg PO QWEEK 09/26/18 aspirin 81 mg tablet,delayed 81 mg PO DAILY 09/26/18 release (Adult Low Dose Aspirin) cariprazine 4.5 mg capsule 4.5 mg PO DAILY 09/26/18 (Vraylar) coenzyme Q10 100 mg capsule (Co 100 mg PO TID 09/26/18 Q-10) prazosin 1 mg capsule (Minipress) 1 mg PO QHS 09/26/18 quetiapine 50 mg tablet (Seroquel) 50 mg PO HS 09/26/18 riboflavin (vitamin B2) 100 mg 200 mg PO BID 09/26/18 tablet sennosides 8.6 mg tablet (senna) 8.6 mg PO DAILY 09/26/18 venlafaxine 100 mg tablet 225 mg PO DAILY 09/26/18 lactulose 10 gram/15 mL (15 mL) 10 gm PO DAILY PRN 11/17/18 oral solution omeprazole 20 mg capsule,delayed 20 mg PO DAILY 11/17/18 release carboxymethylcellulose sodium 1 % 1 drp ophthalmic (eye) QID 01/04/19 eye gel in a dropperette (Refresh Celluvisc) cholecalciferol (vitamin D3) 25 1,000 unit PO BID 01/04/19 mcg (1,000 unit) capsule (Vitamin D3) magnesium oxide 400 mg PO HS 01/04/19 clonazepam 1 mg tablet 0.5 mg PO QHS 01/26/22 Current Visit Medications: Current Medications Generic Name Dose Route Start Last Admin Trade Name Freq PRN Reason Stop Dose Admin Ringer's Solution 1,000 mls @ 80 mls/hr 02/03/22 06:00 02/03/22 09:49 IV 03/04/22 23:59 80 mls/hr INFUSION ELISA Administration IV Miscellaneous Supplies 1 each 02/03/22 06:00 Iv Access IV 03/04/22 23:59 DIRECTED ELISA Sodium Chloride 0 ml 02/03/22 06:00 Normal Saline Flush 10 Ml Syr IV 03/04/22 23:59 PRN PRN Sodium Chloride 0 ml 02/03/22 06:00 Normal Saline 10 Ml Vial IJ 03/04/22 23:59 DIRECTED PRN Sterile Water 0 ml 02/03/22 06:00 Water,Injection,Sterile 10 Ml Vial IJ 03/04/22 23:59 DIRECTED PRN PFSH Active Problems Active Problems: Problem Status Onset Code Tubular adenoma of colon D12.6 Heart murmur Laryngopharyngeal reflux (LPR) K21.9 Screening for colon cancer Z12.11 Chronic kidney disease N18.9 Medical History Medical History ADD (attention deficit disorder) pt denies Anemia Back pain with radiation Blurred vision Classical migraine with intractable migraine Depressed mood Deviated nasal septum Dry eyes Dry mouth Dysphonia Fibromyalgia Genital herpes Hallux valgus Herniated cervical disc Hoarseness Hyperlipidemia Hypersomnia Hypokalemia Hypothyroid Major depressive disorder with current active episode Migraine Nasal obstruction Nasal turbinate hypertrophy Osteoarthritis Osteopenia Plantar fasciitis PTSD (post-traumatic stress disorder) Pt. states there is nothing that is a potential trigger we should be aware of. Scoliosis Spondylosis of cervical region without myelopathy or radiculopathy Thyroid nodule Medical History Comments:: Pt. 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 Also has a history of low BP. Pt. states I regurgitate easily Surgical History Surgical History History of colonoscopy (~07/2021) Hx of cataract removal with insertion of prosthetic lens Hx of cholecystectomy Hx of fusion of cervical spine C5,6,7 with plates and screws per pt Tobacco Smoking/Tobacco Use Status: Never Alcohol Alcohol Intake: never Substance Use Substance use: Never Substance use type: does not use Vital Signs and Lab Results Vital Signs Most Recent Vital Signs in EMR: Most Recent Vital Signs Temp Pulse Resp BP Pulse Ox 36.0 C L 111 H 18 111/69 95 02/03/22 09:29 02/03/22 09:29 02/03/22 09:29 02/03/22 09:29 02/03/22 09:29 Lab Results Blood Type / Crossmatch: No Data to Display Complete Blood Count: No Data to Display Complete Metabolic Panel: No Data to Display Liver Function Panel: No Data to Display Coagulation Panel: No Data to Display Cardiac Panel: No Data to Display Arterial Blood Gas: No Data to Display Venous Blood Gas: No Data to Display Pancreas Panel: No Data to Display Thyroid Panel: No Data to Display Infectious Disease: No Data to Display Blood Cultures: No Data to Display Toxicology Panel: No Data to Display Anesthesia Assessment and Plan Anesthesia History Personal History: No History of Anesthesia Complications Family History: No Family History of Anesthesia Complications Exercise Tolerance Exercise Tolerance: Metabolic Equivalents<4 Pertinent Negatives Pertinent Negatives: No Symptoms of GERD (Not well controlled with medication ), No Major Cardiovascular Symptoms or Complaints, No Major Pulmonary Symptoms or Complaints and No History of CVA/TIA Cardiac & Pulmonary Exam Cardiac Exam: Normal S1/S2 Heart Sounds Pulmonary Exam: Clear Bilateral Breath Sounds Implantable Cardiac Device Does patient have a Pacemaker or an ICD?: No Airway Exam Known Difficult Airway: Yes Mallampati Class: 3 Mouth Opening: Normal (> 3cm) Thyromental Distance: Greater than 3 cm Neck Range of Motion: Full ROM (ACDF in the past, demonstrated FCROM. ) Neck Circumference: Normal Teeth Condition: Normal Dentition ASA Classification ASA Score: ASA 2 Emergency Case?: No NPO Status NPO Status: NPO Clears >2 hours, Solids >8 hours Anesthesia Plan Resuscitation Status: Full Code Anesthesia Technique: General Anesthesia Airway Planned: Natural Airway Monitors Used: Standard Monitors
[2022-02-03 10:29] VITALS: BMI 21.7
--- NOTE | 2022-02-03 11:03 | BOWEL_PTH ---
PATIENT: Reina Low LOC: [facility] U#:[id number] AGE/SX: 66/F ROOM: RE02/03/[address]: Rodrigo Franco MD : 1955 BED: DIS: 02/03/2022 SPEC #: [id number] RECD: 02/03/22 12:45 STATUS: KRISTAL REQ #: [id number] MATT: 02/03/22 11:[address]: Rodrigo Franco DEPT: Surgical Specimen RECD BY: Mei Dyson ENTERED: 02/03/22 12:47 SP TYPE: Bowel OTHR DR: JUSTIN RODRIGUEZ Tissues: 1 - BIOPSY BOWEL 2 - BIOPSY BOWEL 3 - BIOPSY BOWEL Procedures: GROSS AND MICRO LEVEL 4 Comments: [id number]
--- NOTE | 2022-02-03 11:32 | W.ANESPOSTOP ---
Postoperative Evaluation Date, Time and Location Date Performed: 02/03/22 Time Performed: 11:33 Patient Location: Day Surgery Unit Vital Signs Most Recent Imported Vital Signs: Most Recent Vital Signs Temp Pulse Resp BP Pulse Ox 36.0 C L 111 H 18 111/69 95 02/03/22 09:29 02/03/22 09:29 02/03/22 09:29 02/03/22 09:29 02/03/22 09:29 Most Recent Manually Entered Vital Signs: Adult Blood Pressure: 100/78 Heart Rate: 79 Respirations: 12 Oxygen Saturation (%): 96 Temperature (C): 36.3 C Pain Score (0-10 Scale): 0 Pain Score Most Recent Pain Score: Most Recent Pain Score Pain Level 5 02/03/22 09:29 Assessment Mental Status: Awake (Alert & Oriented to Patient Baseline) Airway and Respiratory Function: Patent airway with normal (patient baseline) respiratory exam Cardiovascular Function: Hemodynamically Stable Hydration Status: Adequately Hydrated Nausea & Vomiting: No Nausea or Vomiting Pain: Pt. Denies Any Pain Peripheral Nerve Block: Patient did not receive a nerve block
[2022-02-03 11:33] VITALS: BP 100/78; PULSE 79; RESP 12; TEMPC 36.3; O2SAT 96
[2022-02-03 11:36] VITALS: BP 100/78; PULSE 81; RESP 16; TEMP 36.2; O2SAT 97
[2022-02-03 12:00] VITALS: BP 92/65; PULSE 72; RESP 16; TEMP 36.1; O2SAT 96
== END 2022-02-03 12:45 | disposition home or self-care (01) ==
PROVIDERS: PCP Nurse Practitioner Family; Visit Provider Surgery
PROC: 0DJD8ZZ Inspection of Lower Intestinal Tract, Via Natural or Artificial Opening Endoscopic (ICD-10-PCS; CPT 45378; principal; 2022-02-03 10:15)
DX: Z12.11 Encounter for screening for malignant neoplasm of colon (principal); D12.0 Benign neoplasm of cecum; D12.3 Benign neoplasm of transverse colon; Z86.010 Personal history of colon polyps
CPT/HCPCS: 45385; 45380; 88305

== ENCOUNTER 2022-02-11 13:42 | Outpatient (REF) | payer MEDICARE, OTHER, SELFPAY ==
[2022-02-11 14:48] LABS: Abs Immature Grans 0.07 10^3/uL (0.0-0.06); Absolute Basophil Count 0.04 10^3/uL (0.0-0.2); Absolute Eosinophil Count 0.07 10^3/uL (0.0-0.7); Absolute Monocyte Count 0.58 10^3/uL (0.1-0.8); Absolute Neutrophil Count 5.05 10^3/uL (1.2-6.7); Basophils % 0.5; Eosinophils % 0.9; HCT 37.9 % (36.0-46.0); HGB 12.7 g/dL (11.2-15.7); Immature Grans % 0.9; Lymphocytes % 24.6; MCH 31.1 pg (27.0-33.0); MCHC 33.5 % (32.0-36.0); MCV 93 fL (80-95); MPV 8.9 fL (8.0-11.0); Monocytes % 7.5; Neutrophils % 65.6; Platelet Count 375 10^3/uL (130-400); RBC 4.09 10^6/uL (3.93-5.22); RDW 12.7 % (11.7-14.6); RDW-SD 43.1 fL; WBC 7.71 10^3/uL (4.4-10.8)
[2022-02-11 15:12] LABS: ALT 22 U/L (14-59); AST 18 U/L (15-37); Albumin 3.8 g/dL (3.4-5.0); Alkaline Phosphatase 73 U/L (46-116); Anion Gap 7.3 mmol/L (3-11); BUN 9 mg/dL (7-18); Bilirubin, Total 0.4 mg/dL (0.2-1.0); CO2 29.7 mmol/L (21.0-32.0); CREATININE 0.8 mg/dL (0.55-1.02); Calcium 9.2 mg/dL (8.5-10.1); Calculated LDL 89 mg/dL (<100); Chloride 103 mmol/L (98-107); Cholesterol 174 mg/dL (<200); Estimated GFR 81.21 (mL/min/1.73m2); Glucose 100 mg/dL (74-106); HDL Cholesterol 65 mg/dL (40-60); Potassium 3.7 mmol/L (3.5-5.1); Sodium 140 mmol/L (136-145); TSH (W/Ref FT4) 0.19 uIU/mL (0.36-3.74); Total Protein 6.5 g/dL (6.4-8.2); Triglyceride 104 mg/dL (<150)
[2022-02-11 15:38] LABS: FREE T4 1.41 ng/dL (0.76-1.46)
== END 2022-02-11 13:43 | disposition home or self-care (01) ==
LOC: NCHCN 13:42
PROVIDERS: PCP Nurse Practitioner Family; Visit Provider Nurse Practitioner Family
DX: E78.5 Hyperlipidemia, unspecified (principal); D53.9 Nutritional anemia, unspecified; N18.1 Chronic kidney disease, stage 1; E87.6 Hypokalemia; E04.1 Nontoxic single thyroid nodule
CPT/HCPCS: 80053; 80061; 84439; 84443; 85025

== ENCOUNTER → 2022-02-17 08:26 | Outpatient (BNVA) | payer MEDICARE, OTHER, SELFPAY | PROVIDERS: PCP Nurse Practitioner Family; Referring Provider Nurse Practitioner Family; Visit Provider Surgery | DX: Z86.010 Personal history of colon polyps (principal) | CPT/HCPCS: 99214 ==

== ENCOUNTER 2022-05-26 13:21 | Outpatient (REF) | payer MEDICARE, OTHER, SELFPAY ==
[2022-05-26 15:18] LABS: TSH 1.71 uIU/mL (0.36-3.74)
== END 2022-05-26 13:22 | disposition home or self-care (01) ==
LOC: NCHCN 13:21
PROVIDERS: PCP Nurse Practitioner Family; Visit Provider Nurse Practitioner Family
DX: E03.9 Hypothyroidism, unspecified (principal)
CPT/HCPCS: 84443

== ENCOUNTER 2023-07-14 14:30 | Outpatient (REF) | payer MEDICARE, OTHER, SELFPAY ==
[2023-07-14 20:32] LABS: Abs Immature Grans 0.03 10^3/uL (0.0-0.06); Absolute Basophil Count 0.03 10^3/uL (0.0-0.2); Absolute Eosinophil Count 0.05 10^3/uL (0.0-0.7); Absolute Lymphocyte Count 1.64 10^3/uL (1.2-3.4); Absolute Monocyte Count 0.48 10^3/uL (0.1-0.8); Absolute Neutrophil Count 4.79 10^3/uL (1.2-6.7); Basophils % 0.4 %; Eosinophils % 0.7 %; HCT 38.3 % (36.0-46.0); HGB 12.7 g/dL (11.2-15.7); Immature Grans % 0.4 %; Lymphocytes % 23.4 %; MCH 31.3 pg (27.0-33.0); MCHC 33.2 % (32.0-36.0); MCV 94 fL (80-95); MPV 9.2 fL (8.0-11.0); Monocytes % 6.8 %; Neutrophils % 68.3 %; Platelet Count 314 10^3/uL (130-400); RBC 4.06 10^6/uL (3.93-5.22); RDW 12.9 % (11.7-14.6); RDW-SD 44.7 fL; WBC 7.02 10^3/uL (4.4-10.8)
[2023-07-14 20:40] LABS: ALT 21 U/L (14-59); AST 13 U/L (15-37); Albumin 3.7 g/dL (3.4-5.0); Alkaline Phosphatase 75 U/L (46-116); Anion Gap 7.6 mmol/L (3-11); BUN 14 mg/dL (7-18); Bilirubin, Total 0.4 mg/dL (0.2-1.0); CO2 27.4 mmol/L (21.0-32.0); CREATININE 0.9 mg/dL (0.55-1.02); Calcium 8.8 mg/dL (8.5-10.1); Chloride 106 mmol/L (98-107); Estimated GFR 69.64 (mL/min/1.73m2); Glucose 97 mg/dL (74-106); Potassium 3.6 mmol/L (3.5-5.1); Sodium 141 mmol/L (136-145); TSH 1.23 uIU/Ml (0.36-3.74); Total Protein 6.5 g/dL (6.4-8.2)
[2023-07-14 20:54] LABS: Calculated LDL 114 mg/dL (<100); Cholesterol 206 mg/dL (<200); HDL Cholesterol 70 mg/dL (40-60); Triglyceride 112 mg/dL (<150)
== END 2023-07-14 14:31 | disposition home or self-care (01) ==
LOC: NCHCN 14:30
PROVIDERS: PCP Nurse Practitioner Family; Visit Provider Nurse Practitioner Family
DX: N18.1 Chronic kidney disease, stage 1 (principal); E03.9 Hypothyroidism, unspecified; G47.00 Insomnia, unspecified; E78.5 Hyperlipidemia, unspecified
CPT/HCPCS: 80053; 80061; 84439; 84443; 85025

== ENCOUNTER → 2023-08-09 04:26 | Outpatient (CLI) | payer MEDICARE, OTHER, SELFPAY ==
--- NOTE | 2023-08-09 | DI.MAMMO_ITS ---
Exam(s) MAMMO SCREENING EXAM: MAMMO SCREENING CLINICAL HISTORY: SCREENING, Z12.39 TECHNIQUE: Bilateral full field digital CC and MLO mammographic images were obtained with 3D tomosyn thesis and utilizing computer aided detection (CAD). COMPARISON: Available for comparison. FINDINGS: Masses/Architectural Distortion: None seen. Microcalcifications: No suspicious pleomorphic-type are seen. Skin Thickening/Nipple Retraction: None. IMPRESSION: 1. No significant interval change with no specific features of malignancy noted. 2. Unless there is more urgent need, screening mammography is recommended, as per [employer] guidelines. BI-RADS Category 1 - Negative Breast Density - Category C - Heterogeneously dense Breast density category C or D implies that the patient has dense breast tissue. Dense breast tissue is very common and is not abnormal but dense breast tissue can make it harder to find cancer on a ma mmogram. Also, dense breast tissue may increase their breast cancer risk. This information about the result of the mammogram report was provided to the patient to raise their awareness. Use this report when you speak with the patient about their risks for breast cancer, which includes their family hist ory. At that time, you may recommend for more screening tests (Ultrasound or MRI) as they might be us eful based on their risk. A negative radiographic report should not delay biopsy if a dominant or clinically suspicious mass is present. Up to ten percent of cancers are not identified on mammography. A negative report may reinforce clinical impression. Adenosis and dense breasts may obscure an underlying neoplasm. False positive reports average 6 to 10%. Patient will receive a letter notifying them of these results.
== END ==
PROVIDERS: Visit Provider Nurse Practitioner Family
DX: Z12.31 Encounter for screening mammogram for malignant neoplasm of breast (principal); R92.333 Mammographic heterogeneous density, bilateral breasts
CPT/HCPCS: 77063; 77067

== ENCOUNTER → 2023-10-04 01:01 | Outpatient (CLI) | payer MEDICARE, OTHER, SELFPAY ==
--- NOTE | 2023-10-04 07:45 | DI.RAD_ITS ---
Exam(s) XR FOOT LT COMPLETE EXAM: XR FOOT LT COMPLETE CLINICAL HISTORY: Left foot pain,M79.672. TECHNIQUE: 2D digital imaging was performed. Three views. COMPARISON: CR XR FOOT RT COMPLETE from 10/04/2023 FINDINGS: BONES: No acute fracture is present. No bony destructive lesion is seen. JOINTS: No dislocation present. Prominent hallux valgus, similar to contralateral foot. Mild degen erative changes 1st MTP joint. Pes planus. Mild degenerative changes of the inter tarsal articulati ons. SOFT TISSUE: Normal. IMPRESSION: Hallux valgus and pes planus. DATA REPOSITORY: RADIATION DOSE DELIVERED:
--- NOTE | 2023-10-04 14:01 | DI.RAD_ITS ---
Exam(s) XR FOOT RT COMPLETE EXAM: XR FOOT RT COMPLETE CLINICAL HISTORY: Rt foot pain,M79.671. TECHNIQUE: 2D digital imaging was performed. Three views. COMPARISON: No exams were available for comparison FINDINGS: BONES: No acute fracture is present. No bony destructive lesion is seen. JOINTS: No dislocation present. Prominent hallux valgus. Mild degenerative change present at 1st MT P joint. Flattening of the plantar arch. Dorsal talar beak and mild degenerative changes talonavicu lar joint. Hammertoe deformities of the 4th and 5th toes. SOFT TISSUE: Normal. IMPRESSION: Hallux valgus and pes planus. DATA REPOSITORY: RADIATION DOSE DELIVERED:
== END ==
PROVIDERS: PCP Nurse Practitioner Family; Visit Provider Podiatrist
DX: M79.671 Pain in right foot (principal); M79.672 Pain in left foot; M20.12 Hallux valgus (acquired), left foot; M21.42 Flat foot [pes planus] (acquired), left foot; M20.11 Hallux valgus (acquired), right foot; M21.41 Flat foot [pes planus] (acquired), right foot
CPT/HCPCS: 73630

== ENCOUNTER 2024-07-12 17:53 | Outpatient (REF) | payer MEDICARE, SELFPAY ==
[2024-07-12 20:12] LABS: Hemoglobin A1C 5.6 % (<5.7)
[2024-07-12 20:25] LABS: ALT 15 U/L (14-59); AST 14 U/L (15-37); Albumin 3.8 g/dL (3.4-5.0); Alkaline Phosphatase 93 U/L (46-116); Anion Gap 6.6 mmol/L (3-11); BUN 16 mg/dL (7-18); Bilirubin, Total 0.4 mg/dL (0.2-1.0); CO2 28.4 mmol/L (21.0-32.0); CREATININE 1.2 mg/dL (0.55-1.02); Calcium 9.1 mg/dL (8.5-10.1); Calculated LDL 82 mg/dL (<100); Chloride 103 mmol/L (98-107); Cholesterol 179 mg/dL (<200); Glucose 92 mg/dL (74-106); HDL Cholesterol 80 mg/dL (>or=50); Potassium 4.4 mmol/L (3.5-5.1); Sodium 138 mmol/L (136-145); Total Protein 6.6 g/dL (6.4-8.2); Triglyceride 89 mg/dL (<150)
[2024-07-12 20:43] LABS: FREE T4 1.19 ng/dL (0.76-1.46)
== END 2024-07-12 17:54 | disposition home or self-care (01) ==
LOC: NCHCN 17:53
PROVIDERS: PCP Nurse Practitioner Family; Visit Provider Student in an Organized Health Care Education/Training Program
DX: E03.9 Hypothyroidism, unspecified (principal); Z13.1 Encounter for screening for diabetes mellitus; D53.9 Nutritional anemia, unspecified; E78.2 Mixed hyperlipidemia
CPT/HCPCS: 80053; 80061; 83036; 84439; 84443

== ENCOUNTER 2024-07-30 15:25 | Outpatient (CLI) | payer MEDICARE, SELFPAY ==
[2024-07-30 15:28] LABS: Anion Gap 8.9 mmol/L (3-11); BUN 17 mg/dL (7-18); CO2 27.1 mmol/L (21.0-32.0); CREATININE 1.1 mg/dL (0.55-1.02); Calcium 8.8 mg/dL (8.5-10.1); Chloride 102 mmol/L (98-107); Estimated GFR 54.39 (mL/min/1.73m2); Glucose 92 mg/dL (74-106); Potassium 3.6 mmol/L (3.5-5.1); Sodium 138 mmol/L (136-145)
[2024-07-30 15:33] LABS: COMMENT (LAB VIEW ONLY) 60.95 mg/dL; Microalb ug/mg Crea 6.2 ug/mg Cr
== END 2024-07-30 15:26 | disposition home or self-care (01) ==
LOC: LBO 15:28
PROVIDERS: PCP Nurse Practitioner Family; Visit Provider Student in an Organized Health Care Education/Training Program
DX: R79.89 Other specified abnormal findings of blood chemistry (principal)
CPT/HCPCS: 36415; 80048; 82043; 82570

== ENCOUNTER 2024-09-26 03:12 | Outpatient (CLI) | payer MEDICARE, SELFPAY ==
--- NOTE | 2024-09-26 | DI.MAMMO_ITS ---
Exam(s) MAMMO SCREENING EXAM: MAMMO SCREENING CLINICAL HISTORY: Screening Z12.31 TECHNIQUE: Mammograms were interpreted according to the usual protocol including computer analysis with CAD system, tomosynthesis and C-view imaging. COMPARISON: 2019 through 2023 FINDINGS: The breasts are composed of heterogeneously dense fibroglandular densities, Breast Density category C. No suspicious masses or suspicious microcalcifications are seen. No skin thickening or abnormal axillary lymph nodes are seen. There has been no significant change from prior exams. IMPRESSION: BI-RADS Category 1, Negative mammogram. Yearly screening mammography is recommended. Breast Density: Category C - The breasts are heterogeneously dense, which may obscure small masses. Breast density Category C or D implies that the patient has dense breast tissue. Dense breast tissue can make it harder to find cancer on a mammogram. Dense breast tissue is also associated with an increased risk of breast cancer. This information about the result of the mammogram report was provided to the patient to raise their awareness. Use this report when you speak with the patient about their risks for breast cancer, which includes their family history. At that time, you may recommend additional screening tests (Ultrasound or MRI) as these tests may add significant information. A negative radiographic report should not delay biopsy if a dominant or clinically suspicious mass is present. Up to ten percent of cancers are not identified on mammography. A negative report may reinforce clinical impression. Adenosis and dense breasts may obscure an underlying neoplasm. False positive reports average 6 to 10%.
== END 2024-09-26 03:32 ==
PROVIDERS: PCP Nurse Practitioner Family; Visit Provider Student in an Organized Health Care Education/Training Program
DX: Z12.31 Encounter for screening mammogram for malignant neoplasm of breast (principal); R92.333 Mammographic heterogeneous density, bilateral breasts
CPT/HCPCS: 77063; 77067

== ENCOUNTER 2025-01-30 15:22 | Outpatient (REF) | payer MEDICARE, SELFPAY ==
[2025-01-30 17:22] LABS: Cholesterol 165 mg/dL (<200); HDL Cholesterol 74 mg/dL (>40)
[2025-01-30 17:25] LABS: Vitamin D 25 Total 33 ng/mL (30-100)
[2025-01-30 17:26] LABS: TSH (W/Ref FT4) 2.72 uIU/mL (0.55-4.78)
== END 2025-01-30 15:23 | disposition home or self-care (01) ==
LOC: NCHCN 15:22
PROVIDERS: PCP Student in an Organized Health Care Education/Training Program; Visit Provider Student in an Organized Health Care Education/Training Program
DX: E03.9 Hypothyroidism, unspecified (principal); E78.5 Hyperlipidemia, unspecified; E55.9 Vitamin D deficiency, unspecified
CPT/HCPCS: 80061; 82306; 84443